=== PATIENT | female | born 1985 | race Caucasian/White ===

== ENCOUNTER 2019-03-29 11:57 | Emergency (ER) | payer OTHER ==
[2019-03-29 13:06] LABS: Absolute Lymphocytes (CBC) 1.9 K/uL (0.7-4.9); Basophils % 0.2 % (0-1.3); Hematocrit 49.2 % (36.0-45.0); Lymphocytes % 12.5 % (15.3-44.8); MPV 10.3 fL (7.6-11.3); RBC Red Blood Cell Count 4.93 M/uL (3.86-4.86)
[2019-03-29 13:23] LABS: Albumin 4.1 g/dL (3.4-5.0); Bilirubin Direct 0.2 mg/dL (0-0.2); Bilirubin Total 0.7 mg/dL (0.2-1.0); Protein, Total 8.8 g/dL (6.4-8.2)
[2019-03-29] MEDS ORDERED: MORPHINE 4 MG/ML SYR ONE (13:42)
[2019-03-29] MEDS ORDERED: ONDANSETRON 4 MG/2 ML VIAL ONE ×2 (13:43→15:10)
[2019-03-29] MEDS ORDERED: NA CHLORIDE 0.9% 1,000 ML ONE (13:44)
[2019-03-29 15:00] LABS: Urine Blood NEGATIVE (NEG); Urine Glucose NEGATIVE (NEG); Urine Protein 2+ (NEG); Urine Specific Gravity >1.030 (1.005-1.030); Urine pH 5.5 (5.0-7.0)
--- NOTE | 2019-03-29 15:31 | RAD REPORT ---
EXAM DESCRIPTION: CT - Abdomen Pelvis W Contrast - 03/29/2019 3:16 pm CLINICAL HISTORY: ABD PAIN, prior gastric surgical procedure COMPARISON: None. TECHNIQUE: Biphasic, helical CT imaging of the abdomen and pelvis was performed following 100 ml non -ionic IV contrast. No oral contrast given. All CT scans are performed using dose optimization technique as appropriate and may include automated exposure control or mA/KV adjustment according to patient size. FINDINGS: No suspicious findings in the lung bases. The liver, spleen, and pancreas show no suspicious findings. Cholecystectomy clips are present. No bi liary tree dilatation. Symmetric renal function is seen with no hydronephrosis or suspicious renal mass. No pyelonephritis o r acute parenchymal process. No bladder abnormalities. No adrenal abnormalities. Gastric lap band is in place. No gastric wall thickening or mass. No dilated large or small bowel. Th e appendix normal. No free air, free fluid or inflammatory stranding. No hernia, mass or bulky lymp hadenopathy. Uterus and ovaries show no suspicious findings. No suspicious bony findings. IMPRESSION: Contrast enhanced CT abdomen and pelvis showing no significant or suspicious finding.
--- NOTE | 2019-03-29 15:57 | ER ---
Nurse's Notes [facility] Name: Bibi Palomo Age: 33 yrs Sex: Female : 1985 Arrival Date: 03/29/2019 Time: 11:58 Bed 23 Private MD: Diagnosis: Nausea and vomiting;Abdominal and pelvic pain;Acute cystitis Presentation: 03/29 12:08 Presenting complaint: Patient states: sore throat, congestion, n/v hx gastric sleeve sv and unable to eat or drink anything x 48 hrs. Transition of care: patient was not received from another setting of care. Onset of symptoms was March 24, 2019. Risk Assessment: Do you want to hurt yourself or someone else? Patient reports no desire to harm self or others. Care prior to arrival: None. 12:08 Method Of Arrival: Ambulatory sv 12:19 Initial Sepsis Screen: Does the patient meet any 2 criteria?. iw 12:19 Acuity: ALBERTO 3 iw 16:10 Initial Sepsis Screen: Does the patient have a suspected source of infection? No. rv Patient's initial sepsis screen is negative. 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 - Social history:: Smoking status: Patient/guardian denies using tobacco. - Ebola Screening: : No symptoms or risks identified at this time. Screenin:14 Abuse screen: Denies threats or abuse. Denies injuries from another. Nutritional iw screening: Has had N/V for 3 or more days. Tuberculosis screening: No symptoms or risk factors identified. Fall Risk IV access (20 points). Assessment: 13:12 General: Appears in no apparent distress. Behavior is calm, cooperative. General: iw Reports fever for feeling ill for. Pain: Complains of pain in head. Neuro: Level of Consciousness is awake, alert, obeys commands, Oriented to person, place, time, situation, Moves all extremities. Full function. Cardiovascular: Denies chest pain, Capillary refill < 3 seconds in bilateral fingers Patient's skin is warm and dry. Respiratory: Respiratory effort is even, unlabored, Respiratory pattern is regular, symmetrical. GI: Abdomen is non-distended, Reports nausea, vomiting. Derm: Skin is intact, is healthy with good turgor. Musculoskeletal: Range of motion: intact in all extremities. 13:48 Reassessment: Patient appears in no apparent distress at this time. Patient and/or iw family updated on plan of care and expected duration. Pain level reassessed. Patient is alert, oriented x 3, equal unlabored respirations, skin warm/dry/pink. pt requesting pain medicine, , DOPING SUPERVISOR notified, pt medicated with morphine 4 mg IVP. 14:45 Reassessment: Patient appears in no apparent distress at this time. Patient and/or iw family updated on plan of care and expected duration. Pain level reassessed. Patient is alert, oriented x 3, equal unlabored respirations, skin warm/dry/pink. Vital Signs: 12:09 BP 129 / 84; Pulse 123; Resp 20; Temp 96.1(O); Pulse Ox 100% ; Weight 112.49 kg; Height sv 5 ft. 6 in. (167.64 cm); 13:48 BP 141 / 92; Pulse 107; Resp 18 S; Temp 98.4(O); Pulse Ox 97% ; iw 14:30 BP 138 / 90; Pulse 99; Resp 18; Pulse Ox 100% ; rv 15:31 BP 126 / 90; Pulse 97; Resp 18; Temp 97.8; Pulse Ox 100% on R/A; rv 16:09 BP 130 / 91; Pulse 89; Resp 18; Pulse Ox 100% on R/A; rv 12:09 Body Mass Index 40.03 (112.49 kg, 167.64 cm) sv ED Course: 11:58 Patient arrived in ED. as 11:59 Lee Bo FNP-C is PHCP. la1 11:59 Julien Matson MD is Attending Physician. la1 12:10 Arm band placed on. sv 12:16 Jennifer Damon, SHALOM is Primary Nurse. iw 12:19 Triage completed. iw 12:55 Initial lab(s) drawn, by me, sent to lab. Flu and/or RSV swab sent to lab. Strep swab lt1 sent to lab. Inserted saline lock: 20 gauge in right antecubital area, using aseptic technique. 12:55 Strep Sent. lt1 12:55 Flu Sent. lt1 13:57 Radiology exam delayed due to lab results not completed at this time. (HCG) bq (BUN/Creatinine) test not completed at this time. 15:[address] via wheelchair. nj 15:15 CT completed. Patient tolerated procedure well. Patient moved back from CT. nj 15:16 CT Abd/Pelvis - IV Contrast Only In Process Unspecified. EDMS 15:23 Patient has correct armband on for positive identification. Pulse ox on. NIBP on. rv 16:10 No provider procedures requiring assistance completed. IV discontinued, intact, rv bleeding controlled, No redness/swelling at site. Pressure dressing applied. Administered Medications: 13:03 Drug: NS 0.9% 1000 ml Route: IV; Rate: 1000 ml; Site: right antecubital; iw 15:36 Follow up: IV Status: Completed infusion; IV Intake: 1000ml rv 13:03 Drug: Zofran 4 mg Route: IVP; Site: right antecubital; iw 15:35 Follow up: Response: Nausea unchanged rv 13:50 Drug: morphine 4 mg Route: IVP; Site: right antecubital; iw 15:35 Follow up: Response: No adverse reaction; RASS: Alert and Calm (0) rv 15:00 Drug: Zofran 2 mg Route: IVP; Site: right antecubital; rv 15:33 Follow up: Response: No adverse reaction rv 16:09 Drug: Bentyl 20 mg Route: PO; rv 16:09 Follow up: Response: Medication administered at discharge. rv Intake: 15:36 IV: 1000ml; Total: 1000ml. rv Outcome: 15:55 Discharge ordered by . la1 16:11 Discharged to home ambulatory, with family. rv 16:11 Condition: good 16:11 Discharge instructions given to patient, Instructed on discharge instructions, follow up and referral plans. medication usage, Demonstrated understanding of instructions, follow-up care, medications, Prescriptions given X 16:19 Patient left the ED. rv Addendum: 04/04/2019 10:04 Addendum: Culture Results: Positive urine culture. Bacteria is resistant to, has i w intermediate sensitivity, or is not tested against prescribed antibiotics. Report given to JUSTIN for further evaluation and then to whiting machine operator for follow up with patient. Phone call Attempt #1 pt has not urinary s/s, follow up with surgeon tomorrow. Signatures: Dispatcher [employer] Remedios Tran, RN Merary Israel Amelia as Williams, Irene, RN RN iw Lee Bo, COMMUNICATION AND OUTREACH MANAGER-C COMMUNICATION AND OUTREACH MANAGER-Cla1 David Felipe Ronaldo, RN RN rv Tran, [facility]
--- NOTE | 2019-03-29 15:57 | EDPHYS ---
Physician Documentation [facility] Name: Bibi Palomo Age: 33 yrs Sex: Female : 1985 Arrival Date: 03/29/2019 Time: 11:58 Bed 23 Private MD: ED Physician Julien Matson HPI: 03/29 12:42 This 33 yrs old Female presents to ER via Ambulatory with complaints of Flu la1 Symptoms. 12:43 The patient presents to the emergency department with nausea, vomiting, that is la1 intermittent, described as clear fluid, undigested food, diarrhea, that is intermittent. Onset: The symptoms/episode began/occurred 4 day(s) ago. Possible causes: unknown. The symptoms are aggravated by food , The symptoms are alleviated by nothing. Associated signs and symptoms: Pertinent negatives: anorexia, constipation, dysuria, fever, hematuria. Severity of symptoms: At their worst the symptoms were moderate in the emergency department the symptoms are unchanged. The patient has not experienced similar symptoms in the past. pt with history of gastric bypass, states she has been feeling ill for the last few days but now is unable to tolerate fluids, states she vomits/regurgitates after even a sip of water. reports occasional diarrhea and some abd pain. 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 - Social history:: Smoking status: Patient/guardian denies using tobacco. - Ebola Screening: : No symptoms or risks identified at this time. ROS: 12:45 Constitutional: Negative for fever, chills, and weight loss, Eyes: Negative for injury, la1 pain, redness, and discharge, ENT: Negative for injury, pain, and discharge, Neck: Negative for injury, pain, and swelling, Cardiovascular: Negative for chest pain, palpitations, and edema. 12:45 Back: Negative for injury and pain. 12:45 : Negative for injury, bleeding, discharge, and swelling, MS/Extremity: Negative for injury and deformity, Neuro: Negative for headache, weakness, numbness, tingling, and seizure. 12:45 Respiratory: Positive for cough. 12:45 Abdomen/GI: Positive for abdominal pain, nausea, vomiting, and diarrhea, Negative for hematemesis, black/tarry stool, rectal pain, rectal bleeding, bowel incontinence, acute changes. Exam: 12:45 Constitutional: This is a well developed, well nourished patient who is awake, alert, la1 and in no acute distress. Head/Face: Normocephalic, atraumatic. Eyes: Pupils equal round and reactive to light, extra-ocular motions intact. Lids and lashes normal. Conjunctiva and sclera are non-icteric and not injected. Cornea within normal limits. Periorbital areas with no swelling, redness, or edema. ENT: Nares patent. No nasal discharge, no septal abnormalities noted. Tympanic membranes are normal and external auditory canals are clear. Oropharynx with no redness, swelling, or masses, exudates, or evidence of obstruction, uvula midline. Mucous membranes moist. Neck: Trachea midline, no cervical lymphadenopathy. Supple, full range of motion without nuchal rigidity, or vertebral point tenderness. No Meningismus. Chest/axilla: Normal chest wall appearance and motion. Nontender with no deformity. No lesions are appreciated. Cardiovascular: Regular rate and rhythm with a normal S1 and S2. No gallops, murmurs, or rubs. Normal PMI, no JVD. No pulse deficits. Respiratory: Lungs have equal breath sounds bilaterally, clear to auscultation No rales, rhonchi or wheezes noted. No increased work of breathing, no retractions or nasal flaring. 12:45 Abdomen/GI: Inspection: obese Bowel sounds: normal, in all quadrants, Palpation: soft, in all quadrants, mild abdominal tenderness, in the left upper quadrant, Indicators: McBurney's point is not tender, Montaño's sign is negative, Rovsing's sign is negative, Obturator sign is negative, Psoas sign is negative. Vital Signs: 12:09 BP 129 / 84; Pulse 123; Resp 20; Temp 96.1(O); Pulse Ox 100% ; Weight 112.49 kg; Height sv 5 ft. 6 in. (167.64 cm); 13:48 BP 141 / 92; Pulse 107; Resp 18 S; Temp 98.4(O); Pulse Ox 97% ; iw 14:30 BP 138 / 90; Pulse 99; Resp 18; Pulse Ox 100% ; rv 15:31 BP 126 / 90; Pulse 97; Resp 18; Temp 97.8; Pulse Ox 100% on R/A; rv 16:09 BP 130 / 91; Pulse 89; Resp 18; Pulse Ox 100% on R/A; rv 12:09 Body Mass Index 40.03 (112.49 kg, 167.64 cm) sv MDM: 12:16 Patient medically screened. la1 15:58 Data reviewed: vital signs, nurses notes, lab test result(s), radiologic studies, and la1 as a result, I will discharge patient. Data interpreted: Pulse oximetry: on room air is 100 %. Interpretation: normal. Counseling: I had a detailed discussion with the patient and/or guardian regarding: the historical points, exam findings, and any diagnostic results supporting the discharge/admit diagnosis, lab results, radiology results, the need for outpatient follow up, a defense attorney, to return to the emergency department if symptoms worsen or persist or if there are any questions or concerns that arise at home. Special discussion: Based on the patient's Hx, exam, and Dx evaluation, there is no indication for emergent surgery or inpatient Tx. It is understood by the patient/guardian that if the Sx's persist or worsen they need to return immediately for re-evaluation. Based on the history and exam findings, there is no indication for further emergent testing or inpatient evaluation. I discussed with the patient/guardian the need to see the defense attorney for further evaluation of the symptoms. 03/29 12:33 Order name: Basic Metabolic Panel; Complete Time: 15:34 la03/29 12:33 Order name: CBC with Diff; Complete Time: 15:34 la03/29 12:33 Order name: Creatinine for Radiology; Complete Time: 15:34 la03/29 12:33 Order name: Hepatic Function; Complete Time: 15:34 la03/29 12:33 Order name: Lipase; Complete Time: 15:34 03/29 12:33 Order name: Flu; Complete Time: 15:34 la03/29 12:33 Order name: CT Abd/Pelvis - IV Contrast Only; Complete Time: 15:34 03/29 12:48 Order name: Strep; Complete Time: 15:34 lt1 03/29 13:29 Order name: Throat Culture EDMS 03/29 14:53 Order name: Urine Dipstick--Ancillary (enter results); Complete Time: 15:34 bd 03/29 14:53 Order name: Urine --Ancillary (enter results); Complete Time: 15:34 bd 03/29 15:35 Order name: Urine Culture la1 03/29 12:33 Order name: IV Saline Lock; Complete Time: 12:55 la03/29 12:33 Order name: Labs collected and sent; Complete Time: 12:55 la03/29 13:57 Order name: Urine Dipstick-Ancillary (obtain specimen); Complete Time: 15:23 la03/29 13:57 Order name: Urine Test (obtain specimen); Complete Time: 15:23 03/29 15:53 Order name: PO challenge; Complete Time: 16:10 la1 Administered Medications: 13:03 Drug: NS 0.9% 1000 ml Route: IV; Rate: 1000 ml; Site: right antecubital; iw 15:36 Follow up: IV Status: Completed infusion; IV Intake: 1000ml rv 13:03 Drug: Zofran 4 mg Route: IVP; Site: right antecubital; iw 15:35 Follow up: Response: Nausea unchanged rv 13:50 Drug: morphine 4 mg Route: IVP; Site: right antecubital; iw 15:35 Follow up: Response: No adverse reaction; RASS: Alert and Calm (0) rv 15:00 Drug: Zofran 2 mg Route: IVP; Site: right antecubital; rv 15:33 Follow up: Response: No adverse reaction rv 16:09 Drug: Bentyl 20 mg Route: PO; rv 16:09 Follow up: Response: Medication administered at discharge. rv Disposition: 17:43 Co-signature as Attending Physician, Julien Matson MD. ma2 Disposition: 03/29/19 15:55 Discharged to Home. Impression: Nausea and vomiting, Abdominal and pelvic pain, Acute cystitis. - Condition is Stable. - Discharge Instructions: Nausea and Vomiting, Adult, Urinary Tract Infection, Adult, Abdominal Pain, Adult, [id number]. - Prescriptions for Zofran ODT 4 mg Oral tablet,disintegrating - place 1 tablet by TRANSLINGUAL route every 12 hours As needed; 12 tablet. Bentyl 20 mg Oral Tablet - take 1 tablet by ORAL route every 6 hours As needed; 20 tablet. Keflex 500 mg Oral Capsule - take 1 capsule by ORAL route every 12 hours for 7 days; 14 capsule. Phenergan 25 mg Rectal Suppository - insert 1 suppository by RECTAL route every 6 hours As needed; 12 suppository. - Medication Reconciliation Form, Thank You Letter form. - Follow up: Private Physician; When: 2 - 3 days; Reason: Recheck today's complaints, Re-evaluation by your physician. Follow up: Emergency Department; When: As needed; Reason: Worsening of condition, unable to tolerate clear liquids by mouth. Signatures: Dispatcher [employer] EDRemedios Hernández RN RN sv Williams, Irene, RN RN iw Lee Bo, ELVIS-C BRAILLE PROOFREADER-[facility] Julien Matson MD MD ma2 Brenden Mancia RN RN rv Corrections: (The following items were deleted from the chart) 15:59 15:55 03/29/2019 15:55 Discharged to Home. Impression: Nausea and vomiting; Abdominal la1 and pelvic pain. Condition is Stable. Forms are Medication Reconciliation Form, Thank You Letter, Antibiotic Education, Prescription Opioid Use. Follow up: Private Physician; When: 2 - 3 days; Reason: Recheck today's complaints, Re-evaluation by your physician. Follow up: Emergency Department; When: As needed; Reason: Worsening of condition, unable to tolerate clear liquids by mouth. la1 16:19 15:59 03/29/2019 15:55 Discharged to Home. Impression: Nausea and vomiting; Abdominal rv and pelvic pain; Acute cystitis. Condition is Stable. Discharge Instructions: Nausea and Vomiting, Adult, Abdominal Pain, Adult, [id number], Urinary Tract Infection, Adult. Prescriptions for Zofran ODT 4 mg Oral tablet,disintegrating - place 1 tablet by TRANSLINGUAL route every 12 hours As needed; 12 tablet, Bentyl 20 mg Oral Tablet - take 1 tablet by ORAL route every 6 hours As needed; 20 tablet, Keflex 500 mg Oral Capsule - take 1 capsule by ORAL route every 12 hours for 7 days; 14 capsule, Phenergan 25 mg Rectal Suppository - insert 1 suppository by RECTAL route every 6 hours As needed; 12 suppository. and Forms are Medication Reconciliation Form, Thank You Letter. Follow up: Private Physician; When: 2 - 3 days; Reason: Recheck today's complaints, Re-evaluation by your physician. Follow up: Emergency Department; When: As needed; Reason: Worsening of condition, unable to tolerate clear liquids by mouth. la1
[2019-03-29] MEDS ORDERED: DICYCLOMINE HCL 10 MG CAP ONE (16:04)
[2019-03-29 16:33] VITALS: O2SAT 100
[2019-03-29 16:34] VITALS: TEMP 97.8
[2019-03-29 16:36] VITALS: BP 130/91
== END 2019-03-29 16:19 | disposition home or self-care (01) ==
LOC: ER 11:57
DX: N30.00 Acute cystitis without hematuria (principal); R10.2 Pelvic and perineal pain; Z88.1 Allergy status to other antibiotic agents
CPT/HCPCS: 96361; 87070; 87088; 85025; 87086; 80048; 36415; 81025; 80076; 87081; 87077; 87186; 81003; 83690; 87804 ×2; 74177; 96375; 96374; 99284; Q9967; J7030; J2405 ×2

== ENCOUNTER 2019-03-31 16:31 | Emergency (ER) | payer OTHER ==
[2019-03-31] MEDS ORDERED: NA CHLORIDE 0.9% 1,000 ML ONE ×2 (17:51→20:16)
[2019-03-31] MEDS ORDERED: ONDANSETRON 4 MG/2 ML VIAL ONE (18:10)
[2019-03-31] MEDS ORDERED: PANTOPRAZOLE 40 MG INJ ONE (18:17)
[2019-03-31 18:19] LABS: Absolute Lymphocytes (CBC) 2.3 K/uL (0.7-4.9); Basophils % 0.5 % (0-1.3); Hematocrit 43.5 % (36.0-45.0); Lymphocytes % 24.2 % (15.3-44.8); MPV 10.1 fL (7.6-11.3)
[2019-03-31 18:34] LABS: Albumin 3.6 g/dL (3.4-5.0); Bilirubin Direct 0.1 mg/dL (0-0.2); Bilirubin Total 0.4 mg/dL (0.2-1.0); Potassium 3.5 mmol/L (3.5-5.1); Protein, Total 7.8 g/dL (6.4-8.2)
--- NOTE | 2019-03-31 19:03 | RAD REPORT ---
EXAM DESCRIPTION: Melania De Luna And Janelle (2 Views)03/31/2019 6:50 pm CLINICAL HISTORY: Cough COMPARISON: None FINDINGS: The lungs appear clear of acute infiltrate. The heart is normal size IMPRESSION: No acute abnormalities displayed
[2019-03-31] MEDS ORDERED: ACETAMINOPHEN 500 MG TAB ONE (20:04)
[2019-03-31] MEDS ORDERED: LIDOCAINE VISCOUS 2% SOLN 15 ML UDC ONE (20:10)
[2019-03-31] MEDS ORDERED: MAGNE/ALUM HYDROXD 30 ML UCUP ONE (20:10)
[2019-03-31 21:59] LABS: Urine Blood 2+ (NEG); Urine Glucose NEGATIVE (NEG); Urine Protein 1+ (NEG); Urine Specific Gravity >1.030 (1.005-1.030); Urine pH 5.5 (5.0-7.0)
--- NOTE | 2019-03-31 22:02 | EDPHYS ---
Physician Documentation [facility] Name: Bibi Palomo Age: 33 yrs Sex: Female : 1985 Arrival Date: 03/31/2019 Time: 16:34 Bed 18 Private MD: ED Physician Sage Palacios HPI: 03/31 18:10 This 33 yrs old Female presents to ER via Ambulatory with complaints of cp Difficulty Swallowing. 18:10 The patient presents with dysphagia, of both solids and liquids. The patient describes cp throat pain as constant. 18:10 Onset: The symptoms/episode began/occurred 4 day(s) ago. cp 18:10 Severity of symptoms: in the emergency department the symptoms are unchanged, despite cp home interventions. Associated signs and symptoms: Pertinent positives: cough, nausea, Sore throat vomiting, abdominal pain, Pertinent negatives chest pain, diarrhea, earache, fever, headache. The patient has been recently seen at the [facility] Emergency Department, this week, for similar complaints labs were performed, CT scan was performed, was given a prescription for an antiemetic, prescribed antibiotic for urinary tract infection. 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 - Social history:: Smoking status: Patient/guardian denies using tobacco. - Ebola Screening: : Patient denies exposure to infectious person Patient denies travel to an Ebola-affected area in the 21 days before illness onset. ROS: 18:20 Constitutional: Positive for poor PO intake, Negative for body aches, chills, fever. cp 18:20 ENT: Positive for difficulty swallowing, sore throat, Negative for drainage from cp ear(s), ear pain, difficulty handling secretions. 18:20 Cardiovascular: Negative for chest pain, palpitations. 18:20 Eyes: Negative for injury, pain, redness, and discharge. cp 18:20 Respiratory: Positive for cough, Negative for shortness of breath, wheezing. cp 18:20 Abdomen/GI: Positive for abdominal pain, nausea and vomiting, Negative for diarrhea, constipation. 18:20 Back: Negative for pain at rest, pain with movement, radiated pain. 18:20 : Negative for urinary symptoms. 18:20 Skin: Negative for rash. 18:20 Neuro: Negative for altered mental status, headache, weakness. 18:20 All other systems are negative. Exam: 18:25 Constitutional: The patient appears in no acute distress, alert, awake, cp non-diaphoretic, non-toxic, well developed, well nourished, obese. 18:25 Head/Face: Normocephalic, atraumatic. Eyes: Pupils equal round and reactive to light, cp extra-ocular motions intact. Lids and lashes normal. Conjunctiva and sclera are non-icteric and not injected. Cornea within normal limits. Periorbital areas with no swelling, redness, or edema. ENT: Nares patent. No nasal discharge, no septal abnormalities noted. Tympanic membranes are normal and external auditory canals are clear. Oropharynx with no redness, swelling, or masses, exudates, or evidence of obstruction, uvula midline. Mucous membranes moist. Chest/axilla: Normal chest wall appearance and motion. Nontender with no deformity. No lesions are appreciated. 18:25 Cardiovascular: Rate: normal, Rhythm: regular, JVD: is not appreciated. 18:25 Respiratory: the patient does not display signs of respiratory distress, Respirations: normal, no use of accessory muscles, no retractions, no splinting, no tachypnea, labored breathing, is not present, Breath sounds: are clear throughout, no decreased breath sounds, no stridor, no wheezing. 18:25 Abdomen/GI: Inspection: abdomen appears normal, Bowel sounds: active, all quadrants, Palpation: soft, in all quadrants, mild abdominal tenderness, in the epigastric area, voluntary guarding, is not appreciated, involuntary guarding, is not appreciated. 18:25 Back: pain, is absent, ROM is normal. 18:25 Skin: no rash present. Vital Signs: 16:56 BP 145 / 98; Pulse 102; Resp 16; Temp 97.5(TE); Pulse Ox 98% on R/A; Weight 112.49 kg; ss Height 5 ft. 6 in. (167.64 cm); Pain 7/10; 18:11 BP 126 / 86; Pulse 98; Resp 18; Pulse Ox 98% on R/A; rv 18:47 BP 130 / 90; Pulse 91; Resp 17; Pulse Ox 100% on R/A; rv 21:43 BP 132 / 66; Pulse 89; Resp 18; Pulse Ox 100% on R/A; mg2 16:56 Body Mass Index 40.03 (112.49 kg, 167.64 cm) ss MDM: 17:37 Patient medically screened. cp 19:00 Differential diagnosis: mononucleosis, tonsillitis, upper respiratory infection, cp uvulitis, pneumonia. 22:00 Data reviewed: vital signs, nurses notes, lab test result(s), radiologic studies, plain cp films. 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 Response to treatment: the patient's symptoms have mildly improved after treatment, VSS. No vomiting observed while in ED and patient observed tolerating liquids. Will discharge to home for continued monitoring. 03/31 18:01 Order name: Basic Metabolic Panel; Complete Time: 19:16 cp 03/31 19:16 Interpretation: Normal except: BUN 6; GFR 79. 03/31 18:01 Order name: CBC with Diff; Complete Time: 19:16 cp 03/31 19:16 Interpretation: Reviewed. 03/31 18:01 Order name: Creatinine for Radiology; Complete Time: 19:16 cp 03/31 18:01 Order name: Hepatic Function; Complete Time: 19:16 cp 03/31 19:16 Interpretation: Normal except: AST 48; GLOB 4.2; A/G 0.9. cp 03/31 18:01 Order name: Lipase; Complete Time: 19:16 cp 03/31 18:01 Order name: Urine Microscopic Only cp 03/31 18:26 Order name: XRAY Chest Pa And Lat (2 Views); Complete Time: 19:16 cp 03/31 19:17 Interpretation: Report reviewed. 03/31 18:26 Order name: [place] Screen Profile 03/31 21:51 Order name: Urine Dipstick--Ancillary (enter results) cm6 01/03 21:51 Order name: Urine --Ancillary (enter results) cm6 03/31 22:12 Order name: Urine Culture [facility] 03/31 18:01 Order name: IV Saline Lock; Complete Time: 18:11 cp 03/31 18:01 Order name: Labs collected and sent; Complete Time: 18:11 cp 03/31 18:01 Order name: Urine Dipstick-Ancillary (obtain specimen); Complete Time: 22:13 cp 03/31 19:19 Order name: PO challenge: crackers and juice; Complete Time: 22:13 cp Administered Medications: 18:12 Drug: NS 0.9% 1000 ml Route: IV; Rate: 1 bolus; Site: right antecubital; rv 20:16 Follow up: IV Status: Completed infusion; IV Intake: 1000ml rv 18:17 Drug: ProTONIX 40 mg Route: IVP; Site: right antecubital; rv 20:15 Follow up: Response: No adverse reaction rv 20:20 Drug: GI Cocktail without - (Maalox Suspension 30 ml, Lidocaine Liquid 2 % 15 rv ml) Route: PO; 22:13 Follow up: Response: No adverse reaction rv 20:20 Drug: NS 0.9% 1000 ml Route: IV; Rate: 1 bolus; Site: right antecubital; rv 22:13 Follow up: IV Status: Completed infusion; IV Intake: 1000ml rv 22:13 Not Given (Patient Refused): Tylenol 1000 mg PO once rv Disposition: 03/31/19 22:00 Discharged to Home. Impression: Nausea, Dysphagia, unspecified. - Condition is Stable. - Discharge Instructions: Dysphagia, Nausea, Adult. - Prescriptions for Protonix 40 mg Oral Tablet - take 1 tablet by ORAL route once daily; 30 tablet. promethazine 25 mg Oral Tablet - take 1 tablet by ORAL route every 6 hours As needed; 20 tablet. - Medication Reconciliation Form, Thank You Letter, Antibiotic Education, Prescription Opioid Use form. - Follow up: Ori Prescott MD; When: 2 - 3 days; Reason: Recheck today's complaints. - Problem is new. - Symptoms have improved. Addendum: 04/03/2019 06:48 Co-signature as Attending Physician, Sage Palacios MD I agree with the assessment and [facility] plan of care. Signatures: Dispatcher [employer] Sage Kennedy MD MD kdr Lucía Ward RN RN ss Chris White, DEANN PA cp Brenden Mancia, RN RN rv Corrections: (The following items were deleted from the chart) 03/31 19:19 19:19 Fluid Challenge ordered. cp cp 22:13 18:01 Kumar ordered. cp rv 22:16 22:00 03/31/2019 22:00 Discharged to Home. Impression: Nausea; Dysphagia, unspecified. rv Condition is Stable. Forms are Medication Reconciliation Form, Thank You Letter, Antibiotic Education, Prescription Opioid Use. Follow up: Ori Prescott; When: 2 - 3 days; Reason: Recheck today's complaints. Problem is new. Symptoms have improved. cp
--- NOTE | 2019-03-31 22:02 | ER ---
Nurse's Notes [facility] Name: Bibi Palomo Age: 33 yrs Sex: Female : 1985 Arrival Date: 03/31/2019 Time: 16:34 Bed 18 Private MD: Diagnosis: Nausea;Dysphagia, unspecified Presentation: 03/31 16:52 Presenting complaint: Patient states: "I have not eaten anything solid since Wednesday ss night. I was seen here Wednesday. They put me on antibiotics, but it's not helping." Pt reports that when she swallows food or anything, it feels as if it gets stuck and just comes right back up." Sent by Dr. Castaneda for evaluation of possible dehydration and for possibly IV antibiotics. Transition of care: patient was not received from another setting of care. Onset of symptoms is unknown. Risk Assessment: Do you want to hurt yourself or someone else? Patient reports no desire to harm self or others. Initial Sepsis Screen: Does the patient meet any 2 criteria? No. Patient's initial sepsis screen is negative. Does the patient have a suspected source of infection? No. Patient's initial sepsis screen is negative. Care prior to arrival: None. 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 - Social history:: Smoking status: Patient/guardian denies using tobacco. - Ebola Screening: : Patient denies exposure to infectious person Patient denies travel to an Ebola-affected area in the 21 days before illness onset. Screenin:10 Abuse screen: Denies threats or abuse. Denies injuries from another. Nutritional rv screening: No deficits noted. Tuberculosis screening: No symptoms or risk factors identified. Fall Risk None identified. Assessment: 18:10 General: Appears in no apparent distress. comfortable, Behavior is calm, cooperative. rv Pain: Complains of pain in abdomen. Neuro: Level of Consciousness is awake, alert, obeys commands, Oriented to person, place, time, situation. Cardiovascular: Patient's skin is warm and dry. Respiratory: Airway is patent. GI: Reports nausea, vomiting. Vital Signs: 16:56 BP 145 / 98; Pulse 102; Resp 16; Temp 97.5(TE); Pulse Ox 98% on R/A; Weight 112.49 kg; ss Height 5 ft. 6 in. (167.64 cm); Pain 7/10; 18:11 BP 126 / 86; Pulse 98; Resp 18; Pulse Ox 98% on R/A; rv 18:47 BP 130 / 90; Pulse 91; Resp 17; Pulse Ox 100% on R/A; rv 21:43 BP 132 / 66; Pulse 89; Resp 18; Pulse Ox 100% on R/A; mg2 16:56 Body Mass Index 40.03 (112.49 kg, 167.64 cm) ss ED Course: 16:34 Patient arrived in ED. mr 16:56 Triage completed. ss 16:56 Arm band placed on left wrist. ss 17:17 Brenden Mancia, SHALOM is Primary Nurse. rv 17:33 Chris White PA is PHCP. cp 17:33 Sage Palacios MD is Attending Physician. cp 17:45 Inserted saline lock: 20 gauge in right antecubital area, using aseptic technique. rv Blood collected. 18:10 Patient has correct armband on for positive identification. Bed in low position. Call rv light in reach. Side rails up X 1. Pulse ox on. NIBP on. 18:59 XRAY Chest Pa And Lat (2 Views) In Process Unspecified. EDMS 22:00 Ori Prescott MD is Referral Physician. cp 22:15 No provider procedures requiring assistance completed. IV discontinued, intact, rv bleeding controlled, No redness/swelling at site. Pressure dressing applied. Administered Medications: 18:12 Drug: NS 0.9% 1000 ml Route: IV; Rate: 1 bolus; Site: right antecubital; rv 20:16 Follow up: IV Status: Completed infusion; IV Intake: 1000ml rv 18:17 Drug: ProTONIX 40 mg Route: IVP; Site: right antecubital; rv 20:15 Follow up: Response: No adverse reaction rv 20:20 Drug: GI Cocktail without - (Maalox Suspension 30 ml, Lidocaine Liquid 2 % 15 rv ml) Route: PO; 22:13 Follow up: Response: No adverse reaction rv 20:20 Drug: NS 0.9% 1000 ml Route: IV; Rate: 1 bolus; Site: right antecubital; rv 22:13 Follow up: IV Status: Completed infusion; IV Intake: 1000ml rv 22:13 Not Given (Patient Refused): Tylenol 1000 mg PO once rv Intake: 20:16 IV: 1000ml; Total: 1000ml. rv 22:13 IV: 1000ml; Total: 2000ml. rv Outcome: 22:00 Discharge ordered by MD. cp 22:15 Discharged to home ambulatory, with family. rv 22:15 Condition: good 22:15 Discharge instructions given to patient, Instructed on discharge instructions, follow up and referral plans. medication usage, Demonstrated understanding of instructions, follow-up care, medications, Prescriptions given X 2. 22:16 Patient left the ED. rv Addendum: 04/05/2019 08:30 Addendum: Culture Results: Positive urine culture. Patient was not prescribed i w antibiotics at discharge. 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 Phone call Attempt #1 pt did not answer, left voicemail. Signatures: Dispatcher [employer] JEREMIAHSD Dhaval Tona jack Jennifer Damon, RN Lucía Roman RN RN ss Page, Corey, PA PA cp Gardose, Michele, Brenden Rios RN, RN RN rv
[2019-03-31 22:10] LABS: Urine Bacteria 20-50 /HPF (<20); Urine Culture Reflex Order REFLEXED; Urine Mucus 1+ /HPF (NONE SEEN); Urine RBC >50 /HPF (NONE SEEN)
[2019-03-31 23:38] VITALS: TEMP 97.5
[2019-03-31 23:40] VITALS: O2SAT 100
[2019-03-31 23:42] VITALS: BP 132/66
== END 2019-03-31 22:16 | disposition home or self-care (01) ==
LOC: ER 16:31
DX: R13.10 Dysphagia, unspecified (principal); Z88.1 Allergy status to other antibiotic agents
CPT/HCPCS: 96361; 87088; 85025; 87086; 80048; 36415; 86308; 81025; 80076; 87077; 87186; 83690; 71046; 96374; 99284; C9113; J7030 ×2; J2405; 81003; 81015